=== PATIENT | female | born 1960 | race Hispanic/Latino ===

== ENCOUNTER 2021-07-13 10:57 | Outpatient (CLI) | payer OTHER ==
--- NOTE | 2021-07-13 13:29 | XRay Report ---
BILATERAL HIPS WITH PELVIS 3 VIEWS INDICATION: BILATERAL HIP PAIN. COMPARISON: None. IMPRESSION: No acute osseous or soft tissue abnormality. Mild to moderate osteoarthritic changes are identified at the left hip. No significant degenerative changes at the right hip. No evidence for osteonecrosis. BILATERAL KNEES STANDING AP VIEW INDICATION: BILATERAL HIP PAIN. COMPARISON: None. IMPRESSION: No acute osseous or soft tissue abnormality. Mild medial compartment joint space narr owing is present in both knees. The lateral compartments are unremarkable. Signer Name: Ismael Darden Jr, MD Signed: 07/13/2021 1:24 PM Workstation Name: [id number]
== END 2021-07-13 10:58 | disposition home or self-care (01) ==
LOC: XRAY 10:57
PROVIDERS: ATTEND Internal Medicine
DX: M16.12 Unilateral primary osteoarthritis, left hip (principal); M25.862 Other specified joint disorders, left knee; M25.861 Other specified joint disorders, right knee
CPT/HCPCS: 73521; 73565